=== PATIENT | female | born 2000 | race African-American/Black ===

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

== ENCOUNTER 2021-11-21 09:25 | Emergency (ER) | payer OTHER, SELFPAY ==
--- NOTE | ~2021-11-21 | XR_ITS ---
EXAMINATION: XR chest 2V DATE: 11/21/2021 09:56 INDICATION: Productive cough TECHNIQUE: PA and lateral views of the chest are obtained. COMPARISON: 07/24/2012 FINDINGS: The lungs are free of acute opacities. There is no pleural effusion or pneumothorax. The ca rdiomediastinal silhouette is normal. The visualized bones and soft tissues are unremarkable. IMPRESSION: 1. No acute cardiopulmonary abnormality. Reviewed, dictated and finalized at location A.
[2021-11-21 09:33] VITALS: BP 145/76; PULSE 79; RESP 16; TEMP 36.6; O2SAT 99
--- NOTE | 2021-11-21 09:39 | ED.URI ---
HPI - URI/Sore Throat General Chief Complaint: Upper Respiratory Infection Stated Complaint: cough/sob Time Seen by Provider: 11/21/21 09:39 Source: patient Mode of arrival: ambulatory Limitations: no limitations History of Present Illness HPI Narrative: 21-year-old female with history of seasonal allergy induced asthma presents with complaint of dry cough for approximately 2 weeks. States that she is out of her inhalers. Does not have a PCP, last inhaler prescribed from an urgent care. Reports that she is short of breath with exertion. Has a history of pneumonia. Denies fever chills. All systems reviewed and negative except as noted above. Related Data Home Medications Medication Instructions Recorded Confirmed levonorgestrel-ethinyl estrad 1 tablet PO DAILY 11/21/21 11/21/21 [Aviane] Allergies Allergy/AdvReac Type Severity Reaction Status Date / Time Penicillins Allergy Unknown Hives Verified 11/21/21 09:37 Review of Systems Review of Systems: CONSTITUTIONAL: Denies fever, chills, or sweats. EYES: Denies visual changes, redness, or discharge. ENT: Denies rhinorrhea, congestion, sore throat, or otalgia. CARDIOVASCULAR: Denies chest pain, palpitations, or edema. RESPIRATORY: Reports cough and dyspnea with exertion. GASTROINTESTINAL: Denies abdominal pain, nausea, vomiting, or diarrhea. GENITOURINARY: Denies dysuria or hematuria. SKIN: Denies rash or itching. MUSCULOSKELETAL: Denies back pain, joint pain, or myalgia. NEUROLOGIC: Denies headache, numbness, or weakness. PSYCHIATRIC: Denies anxiety or depression. All other systems reviewed are negative, except as documented in HPI. [facility] Past Medical History Medical History (Updated 11/21/21 @ 10:17 by Dacia Ibrahim NP) Pneumonia Comments At time of signature, agree with nursing past medical, surgical, social and family history. There is no relevant family history pertinent to the presenting complaint. Exam Narrative: GENERAL: This is a well-nourished, well-developed patient, in no apparent distress. HEAD: normocephalic, atraumatic. EYES: PERRL. Sclera clear/white. Vision is grossly intact. EARS: External ears normal, auditory canals clear and without drainage, TMs normal without perforation. Hearing grossly intact. NOSE: External nose normal with no obvious nasal discharge, nares without redness, no rhinorrhea. THROAT: Mucous membranes moist, posterior pharynx clear. NECK: Neck supple, non-tender without lymphadenopathy, masses or thyromegaly. CARDIOVASCULAR: Regular rate and rhythm without murmurs, gallops, or rubs. RESPIRATORY: Decreased lung sounds throughout all lung rivera. Mild expiratory wheezing to lower lung rivera. SKIN: warm, Dry, intact with no suspicious lesions or rash, good texture and turgor. NEURO: awake, alert, and oriented to person, place and time. There were no obvious focal neurologic abnormalities. EXTREMITIES: Normal range of motion to all extremities. Course Course Level of Care: Express Care Visit Vital Signs Vital signs: Vital Signs Temperature 36.6 C 11/21/21 09:33 Pulse Rate 79 11/21/21 09:33 Respiratory Rate 16 11/21/21 09:33 Blood Pressure 145/76 H 11/21/21 09:33 Pulse Oximetry 99 11/21/21 09:33 Temperature 36.6 C 11/21/21 09:33 Pulse Rate 79 11/21/21 09:33 Respiratory Rate 16 11/21/21 09:33 Blood Pressure 145/76 H 11/21/21 09:33 Pulse Oximetry 99 11/21/21 09:33 Reviewed MDM - URI/Sore Throat MDM Narrative Medical decision making narrative: Patient is aware of diagnosis, understands and agrees to treatment plan. Anticipatory guidance given. Patient agrees to follow-up as directed and is aware of reasons to seek care at the emergency department. Portions of this record may have been created with voice recognition software Differential Diagnosis Differential diagnosis: Likely upper respiratory infection, sinusitis, viral infection and other (Asthma) Discharge Plan Di
[2021-11-21 09:58] VITALS: PULSE 79; RESP 16; O2SAT 100
[2021-11-21] MEDS: ALBUTEROL SULFATE NEB 2.5 MG/3 ML INH INHALATION (09:58)
[2021-11-21 10:20] VITALS: PULSE 80; RESP 16; O2SAT 100
== END 2021-11-21 10:24 | disposition home or self-care (01) ==
PROVIDERS: Emergency Provider Nurse Practitioner Family
DX: J45.901 Unspecified asthma with (acute) exacerbation (principal)
CPT/HCPCS: 71046; 94640; 99213; G0463

== ENCOUNTER 2021-12-02 08:23 | Emergency (ER) | payer OTHER, SELFPAY ==
[2021-12-02 08:33] VITALS: BP 138/82; PULSE 87; RESP 16; TEMP 36.1; O2SAT 100
--- NOTE | 2021-12-02 08:37 | ED.GENADULT ---
HPI - General Adult General Chief complaint: Extremity Problem,Nontraumatic Stated complaint: Numb right toe Time Seen by Provider: 12/02/21 08:37 Source: patient Mode of arrival: ambulatory Limitations: no limitations History of Present Illness HPI narrative: 21-year-old female with no significant medical history presents to [facility] with concern for diabetes, high blood pressure due to family history. She has not been anywhere recently to have her blood pressure checked, so she is unaware if it has been elevated. She reports numbness sensation to right great toe for 3 to 4 hours. She spoke with her mother about it who said she may be wearing shoes that are too tight. Patient does not feel that her shoes are tight and when she takes her shoes off the toe is still numb. There is no change in temperature or color to her right great toe. She has not had an injury. Patient does not have a primary care physician for follow-up. All systems reviewed and negative except as noted above. Related Data Home Medications Medication Instructions Recorded Confirmed levonorgestrel-ethinyl estrad 1 tablet PO DAILY 11/21/21 11/21/21 [Aviane] Allergies Allergy/AdvReac Type Severity Reaction Status Date / Time Penicillins Allergy Unknown Hives Verified 11/21/21 09:37 Review of Systems Review of Systems: CONSTITUTIONAL: Denies fever, chills, or sweats. EYES: Denies visual changes, redness, or discharge. ENT: Denies rhinorrhea, congestion, sore throat, or otalgia. CARDIOVASCULAR: Denies chest pain, palpitations, or edema. RESPIRATORY: Denies cough or dyspnea. GASTROINTESTINAL: Denies abdominal pain, nausea, vomiting, or diarrhea. GENITOURINARY: Denies dysuria or hematuria. SKIN: Denies rash or itching. MUSCULOSKELETAL: Denies back pain, joint pain, or myalgia. Reports numbness sensation to right great toe. NEUROLOGIC: Denies headache, numbness, or weakness. PSYCHIATRIC: Denies anxiety or depression. All other systems reviewed are negative, except as documented in HPI. [facility] Past Medical History Medical History (Updated 12/02/21 @ 09:01 by Dacia Ibrahim NP) Pneumonia Comments At time of signature, agree with nursing past medical, surgical, social and family history. There is no relevant family history pertinent to the presenting complaint. Exam Narrative: GENERAL: This is a well-nourished, well-developed patient, in no apparent distress. HEAD: normocephalic, atraumatic. EYES: PERRL. Sclera clear/white. Vision is grossly intact. EARS: External ears normal NOSE: External nose normal NECK: Neck supple, non-tender without lymphadenopathy, masses or thyromegaly. CARDIOVASCULAR: Regular rate and rhythm without murmurs, gallops, or rubs. RESPIRATORY: Clear to auscultation. Breath sounds equal bilaterally. No wheezes, rales, or rhonchi. SKIN: warm, Dry, with no suspicious lesions or rash, good texture and turgor. NEURO: awake, alert, and oriented to person, place and time. There were no obvious focal neurologic abnormalities. EXTREMITIES: Normal range of motion to all extremities. Right great toe is is normal to have antibiotic compared to left foot. There are no circulation concerns. Course Course Level of Care: Express Care Visit Vital Signs Vital signs: Vital Signs Temperature 36.1 C L 12/02/21 08:33 Pulse Rate 87 12/02/21 08:33 Respiratory Rate 16 12/02/21 08:33 Blood Pressure 138/82 12/02/21 08:33 Pulse Oximetry 100 12/02/21 08:33 Temperature 36.1 C L 12/02/21 08:33 Pulse Rate 87 12/02/21 08:33 Respiratory Rate 16 12/02/21 08:33 Blood Pressure 138/82 12/02/21 08:33 Pulse Oximetry 100 12/02/21 08:33 Reviewed Medical Decision Making MDM Narrative Medical decision making narrative: Patient is aware of diagnosis, understands and agrees to treatment plan. Anticipatory guidance given. Patient agrees to follow-up as directed and is aware of reasons to seek care at the emerge
[2021-12-02 08:52] LABS: Glucose Point of Care 91 mg/dl (65-105)
== END 2021-12-02 09:10 | disposition home or self-care (01) ==
PROVIDERS: Emergency Provider Nurse Practitioner Family
DX: R20.0 Anesthesia of skin (principal)
CPT/HCPCS: 82948; 99212; G0463

== ENCOUNTER 2022-02-23 11:31 | Emergency (ER) | payer OTHER, SELFPAY ==
[2022-02-23 11:34] VITALS: BP 146/91; PULSE 78; RESP 16; TEMP 36.3; O2SAT 100
[2022-02-23 14:16] LABS: Basophils Percent Auto 0.2 % (0.2-1.2); Eosinophils Percent Auto 0.5 % (0-4.4); Hematocrit 46.4 % (37.0-47.0); Hemoglobin 14.8 g/dL (12.0-15.0); Immature Granulocyte Absolute 0.01 K/mm3 (0.00-0.031); Immature Granulocyte Percent A 0.2 % (0-0.5); Lymphocytes Absolute Auto 1.37 K/mm3 (0.9-3.2); Lymphocytes Percent Auto 33.6 % (18.3-44.2); Mean Corpuscular HGB Conc 31.9 g/dl (32-36); Mean Corpuscular Hemoglobin 28.6 pg (26-34); Mean Corpuscular Volume 89.7 fl (80-100); Monocytes Absolute Auto 0.4 K/mm3 (0.1-0.6); Monocytes Percent Auto 10.8 % (2.6-8.5); Neutrophils Absolute Auto 2.2 K/mm3 (1.3-6.7); Neutrophils Percent Auto 54.7 % (45.5-73.1); Platelet Count Result 256 k/mm3 (150-375); Red Blood Count 5.17 M/mm3 (4.2-5.4); Red Cell Distribution Width 13.3 % (11.5-14.5); White Blood Count 4.1 K/mm3 (4.5-10.0)
[2022-02-23 14:25] LABS: Appearance Urine Clear (Clear); Bilirubin Urine 3+ (Negative); Blood Urine Negative (Negative); Color Urine Yellow (Yellow); Glucose Urine UA Trace mg/dL (Negative); Ketones Urine 2+ mg/dL (Negative); Leukocyte Esterase Ur Negative LEU/UL (Negative); Nitrate Urine Negative (Negative); Protein Urine 3+ mg/dL (Negative); Specific Grav Ur 1.025 (1.001-1.035); Urobilinogen Urine >=8.0 mg/dL (<2.0)
[2022-02-23 14:28] LABS: Mucus Urine Heavy /lpf; Squamous Epithelial Cell Urine Many /hpf (Few)
[2022-02-23 14:29] LABS: Add Urine Microscopic? YES
[2022-02-23] MEDS: KETOROLAC 30 MG/ML VIAL (*BKC) IV PUSH (14:49)
[2022-02-23] MEDS: ONDANSETRON INJ 4 MG/2 ML VIAL IV PUSH (14:50)
[2022-02-23] MEDS: SODIUM CHLORIDE 0.9% IV 1,000 ML 999 ML IV CONT (14:53)
--- NOTE | 2022-02-23 14:56 | ED.NAVMDI ---
HPI - Nausea/Vomiting/Diarrhea General Chief complaint: Nausea/Vomiting/Diarrhea Stated complaint: covid +, n/v Time Seen by Provider: 02/23/22 13:45 Source: patient Mode of arrival: ambulatory Limitations: no limitations History of Present Illness HPI Narrative: Patient is a 21 y/o female who presents to the ED with c/o nausea and vomiting. Patient reports she was diagnosed with COVID 4 days ago. Over the last 2 days, she has had persistent nausea and vomiting. She states she has been unable to keep anything down for the last 24 hours. She reports having acid reflux burning from vomiting, but denies any abdominal pain, diarrhea, constipation, chest pain, difficulty breathing, hematemesis, rectal bleeding, urinary symptoms. Last had fever yesterday. Has been taking Tylenol/Ibuprofen at home. Related Data Home Medications Medication Instructions Recorded Confirmed levonorgestrel-ethinyl estradiol 1 tablet PO DAILY 11/21/21 11/21/21 0.1 mg-20 mcg tablet (Aviane) Allergies Allergy/AdvReac Type Severity Reaction Status Date / Time Penicillins Allergy Unknown Hives Verified 11/21/21 09:37 Review of Systems Review of Systems: CONSTITUTIONAL: Reports fevers. ENT: Reports rhinorrhea, congestion. CARDIOVASCULAR: Denies chest pain. RESPIRATORY: Reports cough. Denies dyspnea. GASTROINTESTINAL: Reports N/V. Denies abdominal pain, rectal bleeding, hematemesis, constipation, or diarrhea. GENITOURINARY: Denies dysuria or hematuria. MUSCULOSKELETAL: Reports myalgias. All systems reviewed & are unremarkable except as noted in HPI and below PMFSH Past Medical History Medical History (Updated 02/23/22 @ 16:43 by Jesica Antunez PA-C) COVID-19 Pneumonia Social History Social History (Updated 02/23/22 @ 15:09 by Jesica Antunez PA-C) Smoking status: Never smoker Exam Narrative: GENERAL: Well appearing, well-nourished, non-toxic, in no acute distress. HEAD: Normocephalic, atraumatic. THROAT: Pharynx clear, no exudate. MMs moist. NECK: Supple. No adenopathy, no masses. RESPIRATORY: Airway patent, respirations nonlabored. Clear to auscultation bilaterally, no rales, rhonchi, wheezing. CARDIOVASCULAR: Regular rate and rhythm without murmurs, rubs, or gallops. Peripheral pulses 2+ and equal bilaterally. ABDOMINAL: Soft, no significant tenderness to palpation. Nondistended, no hepatosplenomegaly. Normoactive BS. MUSCULOSKELETAL: Moves all extremities. Strength/ROM intact without gross deformities. SKIN: Warm, dry, normal color. No rashes. NEURO: A&O X3. Speech clear. Cranial nerves II-XII grossly intact. Steady gait. No ataxic movements. PSYCHIATRIC: Appropriate mood and affect. Normal interaction. Course Vital Signs Vital signs: Vital Signs Temperature 97.3 F L 02/23/22 11:34 Pulse Rate 78 02/23/22 11:34 Respiratory Rate 16 02/23/22 11:34 Blood Pressure 146/91 H 02/23/22 11:34 Pulse Oximetry 100 02/23/22 11:34 Oxygen Delivery Room Air 02/23/22 11:34 Temperature 97.3 F L 02/23/22 11:34 Pulse Rate 78 02/23/22 11:34 Respiratory Rate 16 02/23/22 11:34 Blood Pressure 146/91 H 02/23/22 11:34 Pulse Oximetry 100 02/23/22 11:34 Oxygen Delivery Room Air 02/23/22 11:34 MDM - Nausea/Vomiting/Diarrhea Medical Records Attestation: I reviewed the patient's medical records. Lab Data Attestation: I reviewed the patient's lab results. Result diagrams: 02/23/22 14:06 02/23/22 15:30 Labs: Lab Results 02/23/22 02/23/22 02/23/22 Range/Units 14:06 14:13 15:30 WBC 4.1 L (4.5-10.0) K/mm3 RBC 5.17 (4.2-5.4) M/mm3 Hgb 14.8 (12.0-15.0) g/dL Hct 46.4 (37.0-47.0) % MCV 89.7 (80-100) fl MCH 28.6 (26-34) pg MCHC 31.9 L (32-36) g/dl RDW 13.3 (11.5-14.5) % Plt Count 256 (150-375) k/mm3 MPV 11.0 H (7.4-10.4) fl Immature Gran % (Auto) 0.2 (0-0.5) % Neut % (Auto) 54.7 (45.5-73.1) % Lymph % (Auto) 33.6
[2022-02-23] MEDS: FAMOTIDINE 20 MG/2 ML VIAL IV PUSH (15:35)
[2022-02-23 15:55] LABS: Alanine Aminotransferase 60 U/L (6-35); Albumin Level 4.7 g/dL (3.5-5.1); Alkaline Phosphatase 67 U/L (38-126); Anion Gap 16 mmol/L (8-16); Aspartate Amino Transferase 74 U/L (14-36); Bilirubin,Total 1.5 mg/dL (0.2-1.3); Blood Urea Nitrogen 10 mg/dL (7-17); Calcium 9.1 mg/dL (8.4-10.2); Carbon Dioxide 23 mmol/L (22-30); Chloride 101 mmol/L (98-107); Estimated CRCL calculation 124 ml/min; Estimated Glomerular Filt Rate > 60; Glucose 85 mg/dL (65-110); Lipase 50 U/L (23-300); Potassium 4.3 mmol/L (3.4-5.0); Sodium 140 mmol/L (137-145)
== END 2022-02-23 17:00 | disposition home or self-care (01) ==
PROVIDERS: Physician Assistant; Emergency Provider Emergency Medicine
DX: U07.1 COVID-19 (principal); R11.2 Nausea with vomiting, unspecified; Z87.01 Personal history of pneumonia (recurrent)
CPT/HCPCS: 36415; 80053; 81001; 83690; 85025; 87086; 87088; 96361; 96365; 96375; 99284; J0131; J1885; J2405; J7030

== ENCOUNTER 2022-06-12 19:11 | Emergency (ER) | payer OTHER, SELFPAY ==
--- NOTE | 2022-06-12 19:24 | ED.URI ---
HPI - URI/Sore Throat General Chief Complaint: Upper Respiratory Infection Stated Complaint: cp/sob Time Seen by Provider: 06/12/22 19:53 Source: patient and RN notes reviewed Mode of arrival: ambulatory Limitations: no limitations History of Present Illness HPI Narrative: 21-year-old female with history of asthma presents with concern for cough, increased wheezing, pain to lungs with deep breathing that started on Friday. Reports some runny nose and stuffy nose. Reports she has been using her albuterol inhaler or nebulizer several times daily. She has never been hospitalized for asthma. MD elicited complaint: cough Related Data Home Medications Medication Instructions Recorded Confirmed levonorgestrel-ethinyl estradiol 1 tablet PO DAILY 11/21/21 11/21/21 0.1 mg-20 mcg tablet (Aviane) Allergies Allergy/AdvReac Type Severity Reaction Status Date / Time Penicillins Allergy Unknown Hives Verified 06/12/22 19:34 Review of Systems Review of Systems: CONSTITUTIONAL: Reports malaise, chills, sweats, low-grade fever. EYES: Denies visual changes, redness, or discharge. ENT: Reports rhinorrhea, congestion. Denies sinus pain, otalgia and sore throat. CARDIOVASCULAR: Denies chest pain, palpitations, or edema. RESPIRATORY: Reports cough, dyspnea, chest pain with breathing GASTROINTESTINAL: Denies abdominal pain, nausea, vomiting, diarrhea SKIN: Denies rash or itching. MUSCULOSKELETAL: Reports myalgia. NEUROLOGIC: Denies headache. All systems reviewed & are unremarkable except as noted in HPI and below PMFSH Past Medical History Medical History (Updated 06/12/22 @ 20:05 by Daniela Worthington NP) COVID-19 Pneumonia Social History Social History (Updated 02/23/22 @ 15:09 by Jesica Prieto PA-C) Smoking status: Never smoker Comments At time of signature, agree with nursing past medical, surgical, social and family history. There is no relevant family history pertinent to the presenting complaint Exam Narrative: GENERAL: Well-appearing, well-nourished, and in no acute distress. HEAD: Normocephalic EYES: PERRLA, conjunctivae clear ENT: Nares clear, turbinates edematous and erythematous, clear discharge. Mucous membranes moist. TM pearly mcarthur with dull light reflex bilaterally; no tragal tenderness. Oropharynx not erythematous without lesions. Tonsils not enlarged and without exudate, no drooling, no hoarseness, no trismus, uvula midline. NECK: Supple. No lymphadenopathy CHEST: Scattered expiratory wheeze, otherwise Clear to auscultation, breath sounds equal. No rhonchi, rales, or stridor. No respiratory distress, speaks in full sentences. HEART: Regular rate and rhythm. No murmur heard. SKIN: Warm, dry, no rash. NEURO: Alert and oriented x3. PSYCH: Normal mood and affect Course Course Emergency Course: Patient is aware of diagnosis, understands and agrees to treatment plan. Anticipatory guidance given. Patient agrees to follow-up as directed and is aware of reasons to seek care at the emergency department. Portions of this record may have been created with voice recognition software Level of Care: Express Care Visit Vital Signs Vital signs: Reviewed. MDM - URI/Sore Throat MDM Narrative Medical decision making narrative: Differential diagnosis considered: May virus, strep pharyngitis, allergic rhinitis, upper respiratory tract infection, sinusitis, rhinosinusitis, nasopharyngitis. viral pharyngitis, otitis media, otitis externa, pneumonia, bronchitis, viral cough syndrome, viral syndrome, and influenza. Exam findings show no acute concerns or changes; patient is non-toxic appearing and is in no distress. Patient is appropriate for outpatient treatment and follow-up. Lab Data Attestation: I reviewed the patient's lab results. Critical Care Time Critical Care Time Critical Care Time: No Discharge Plan Discharge Clinical Impression: Upper respiratory infection with cough and congestion Pa
[2022-06-12 19:39] VITALS: BP 146/95; PULSE 111; RESP 20; TEMP 36.8; O2SAT 100
== END 2022-06-12 20:10 | disposition home or self-care (01) ==
PROVIDERS: Emergency Provider Nurse Practitioner
DX: J06.9 Acute upper respiratory infection, unspecified (principal); Z86.16 Personal history of COVID-19
CPT/HCPCS: 87420; 87804; 99213; G0463

== ENCOUNTER 2023-05-13 12:30 | Outpatient (CLI) | payer OTHER, MEDICAID, SELFPAY ==
--- NOTE | ~2023-05-13 | US_ITS ---
EXAMINATION: US OB follow up DATE: 05/13/2023 14:14 INDICATION: Amenorrhea. . TECHNIQUE: Real-time ultrasound of the pelvis was performed. COMPARISON: None. FINDINGS: There is a single living fetus in variable presentation. The placenta is anterior, 10 mm from the in ternal cervical os. heart rate is 141 beats per minute (bpm). The amniotic fluid volume is subj ectively normal. The following biometric data were obtained: Biparietal diameter (BPD): 3.5 cm; head circumference (HC): 12.8 cm; abdominal circumference (AC): 11 .1 cm; femur length (FL): 2.2 cm. These measurements are concordant. Estimated weight is 165 g +/- 25 g, which correlates with the 60th percentile when 10/25/23 is us ed as estimated date of delivery. As single measurements, these parameters are each equal to the following estimated gestational ages: BPD: 16 weeks 5 days. HC: 16 weeks 4 days. AC: 16 weeks 6 days. FL: 16 weeks 3 days. estimated gestational age based solely on measurements from this exam is 16 weeks 4 days +/- 1 weeks 1 days. IMPRESSION: 1. Single living fetus in variable presentation. 2. Estimated weight is 165 g +/- 25 g, which correlates with the 60th percentile when 10/25/23 i s used as estimated date of delivery. 3. Low lying placenta. Reviewed, dictated and finalized at location E. IMPRESSION: 1. Single living fetus in variable presentation. 2. Estimated weight is 165 g +/- 25 g, which correlates with the 60th pe rcentile when 10/25/23 is used as estimated date of delivery. 3. Low lying placenta.
== END 2023-05-13 12:31 | disposition home or self-care (01) ==
PROVIDERS: Visit Provider Registered Nurse
DX: Z32.01 Encounter for pregnancy test, result positive (principal); N91.2 Amenorrhea, unspecified; O44.40 Low lying placenta NOS or without hemorrhage, unspecified trimester; Z3A.00 Weeks of gestation of pregnancy not specified
CPT/HCPCS: 76816

== ENCOUNTER 2023-07-10 08:34 | Observation (INO) | payer OTHER, SELFPAY ==
--- NOTE | ~2023-07-10 | US_ITS ---
EXAMINATION: US OB limited DATE: 07/10/2023 09:39 INDICATION: Vaginal bleeding during second trimester TECHNIQUE: Real-time ultrasound of the pelvis was performed. The interpreting radiologist was not pre sent for the study. COMPARISON: None. FINDINGS: There is a single living fetus in breech presentation. The placenta is anterior and 5.6 cm from the internal cervical os. cardiac activity and movement are noted. heart rate is 133 beats per minute (bpm). The amniotic fluid index is subjectively normal. IMPRESSION: 1. Single living fetus in breech presentation. 2. Anterior placenta 5.6 cm from the internal cervical os. Reviewed, dictated and finalized at location L. [employer]
[2023-07-10 08:53] VITALS: BP 130/68; PULSE 91
[2023-07-10 08:59] VITALS: BMI 42.3
--- NOTE | 2023-07-10 08:59 | OBADM ---
This patient, Elidia Messina, admitted to the OB room OB Post 116 for observation. Patient/family oriented to hospital policies and general routines including ID bracelet, bed and alarms, visiting hours, pain management, procedures, bathroom and other care routines, personal items, smoking policy, room service/diet, and visiting hours. Patient/Family are encouraged to report perceived risks to care and to ask questions if they do not understand what they are told or what they should do.
[2023-07-10 09:02] VITALS: BP 108/60; PULSE 93
[2023-07-10 09:16] VITALS: BP 118/60; PULSE 94
--- NOTE | 2023-07-10 09:59 | PC.NURSE ---
0910--Report to Dr. Michel re: pt's reports of vaginal spotting, v.s., fhr tracing, and assessment data. Orders received for u/a and u/s.
[2023-07-10 10:04] LABS: Appearance Urine Cloudy (Clear); Bacteria Urine None Seen /hpf; Bilirubin Urine Negative (Negative); Blood Urine Negative (Negative); Color Urine Yellow (Yellow); Glucose Urine UA Negative (Negative); Ketones Urine Negative (Negative); Leukocyte Esterase Ur Trace LEU/UL (Negative); Nitrate Urine Negative (Negative); Non Pathogenic Casts 0-2; Protein Urine Negative (Negative); RBC Urine 0-2 /hpf (0-2); Specific Grav Ur 1.013 (1.001-1.035); Squamous Epithelial Cell Urine Occasional /hpf (Few); Urobilinogen Urine 0.2 mg/dL (<2.0); WBC Urine 0-5 /hpf; pH Urine 8.5 (5.0-9.0)
[2023-07-10 10:05] LABS: Add Urine Microscopic? YES
--- NOTE | 2023-07-10 10:54 | PC.NURSE ---
1020--report to Dr. Michel re: u/s report and lab results. Orders for gentle cervical exam and if closed to DC home on pelvic rest with PTL precautions.
--- NOTE | 2023-07-28 19:52 | PM.OBTRLD ---
OB - Triage/Final Diagnosis Visit Information Comments/Additional reasons for admission: I have assessed the risk for this patient, Elidia Messina, and determined that she would benefit from observation care. Evaluation Laboratory results: Laboratory Tests 07/10/23 09:17 Urine Color Yellow Urine Appearance Cloudy H Urine pH 8.5 Ur Specific [place] 1.013 Urine Protein Negative Urine Glucose (UA) Negative Urine Ketones Negative Ur Blood (Man) Negative Urine Nitrate Negative Urine Bilirubin Negative Urine Urobilinogen 0.2 Leukocyte Esterase Rfl Trace H Urine RBC 0-2 Urine WBC 0-5 Ur Squamous Epith Cells Occasional Urine Bacteria None seen Urine Casts 0-2 Final Diagnosis (1) Second trimester bleeding: Code(s): O46.92 - Antepartum hemorrhage, unspecified, second trimester Status: Acute
== END 2023-07-10 10:42 | disposition home or self-care (01) ==
PROVIDERS: Admitting Provider Obstetrics & Gynecology; Visit Provider Obstetrics & Gynecology
DX: O46.92 Antepartum hemorrhage, unspecified, second trimester (principal); Z3A.24 24 weeks gestation of pregnancy
CPT/HCPCS: 76815; 81001; G0378; G0379

== ENCOUNTER 2023-08-28 17:12 | Observation (INO) | payer OTHER, SELFPAY ==
[2023-08-28 17:35] VITALS: BP 132/75; PULSE 97
--- NOTE | 2023-08-28 17:41 | OBADM ---
This patient, Elidia Messina, admitted to the OB room [facility] for observation. Pt states she had intercourse last night, and she started to have spotting this afternoon around 1530. Pt denies contractions or leaking fluid. observed light brown discharge on panty liner. Patient/family oriented to hospital policies and general routines including ID bracelet, bed and alarms, visiting hours, pain management, procedures, bathroom and other care routines, personal items, smoking policy, room service/diet, and visiting hours. Patient/Family are encouraged to report perceived risks to care and to ask questions if they do not understand what they are told or what they should do.
[2023-08-28 17:46] VITALS: BP 126/66; PULSE 90
[2023-08-28 17:59] VITALS: TEMP 36.3
[2023-08-28 18:01] VITALS: BP 127/62; PULSE 89
[2023-08-28 18:16] VITALS: BP 135/78; PULSE 81
--- NOTE | 2023-09-17 10:43 | PM.OBTRLD ---
OB - Triage/Final Diagnosis Visit Information Comments/Additional reasons for admission: I have assessed the risk for this patient, Elidia Messina, and determined that she would benefit from observation care. Final Diagnosis (1) Spotting complicating , third trimester: Code(s): O26.853 - Spotting complicating , third trimester Status: Acute
== END 2023-08-28 18:42 | disposition home or self-care (01) ==
PROVIDERS: Admitting Provider Obstetrics & Gynecology; Visit Provider Obstetrics & Gynecology
DX: O26.853 Spotting complicating pregnancy, third trimester (principal); Z3A.31 31 weeks gestation of pregnancy
CPT/HCPCS: G0378; G0379

== ENCOUNTER 2023-10-24 16:09 | Outpatient (RCR) | payer OTHER, MEDICAID, SELFPAY ==
[2023-10-10 16:31] VITALS: PULSE 81
[2023-10-17 17:14] VITALS: BP 138/76; PULSE 93
--- NOTE | ~2023-10-24 | US_ITS ---
EXAMINATION: US OB BPP wo non-stress DATE: 10/17/2023 18:41 INDICATION: Elevated BMI . TECHNIQUE: Real-time ultrasound of the pelvis was performed. COMPARISON: 10/10/2023 FINDINGS: There is a single living fetus in vertex presentation, longitudinal lie. The placenta is anterior, w ell distant from the cervix. heart rate is 127 bpm. The deepest vertical amniotic fluid pocket measures 2.8 cm. Biophysical profile performed by the technologist: breathing (30 sec sustained breathing in 30 minutes): 2 out of 2. movement (3 gross body movements in 30 minutes: 2 out of 2. tone (one episode of jdyknnd-vvdlaawnu-eixzrrt limb movement): 2 out of 2. Amniotic fluid pocket (2 cm): 2 out of 2. Total score: 8 out of 8. IMPRESSION: Single living fetus in vertex presentation. Biophysical profile 8 out of 8. . Reviewed, dictated and finalized at location K.
--- NOTE | ~2023-10-24 | US_ITS ---
EXAMINATION: US OB BPP wo non-stress DATE: 10/24/2023 18:47 INDICATION: Elevated BMI . TECHNIQUE: Real-time ultrasound of the pelvis was performed. COMPARISON: 10/17/2023. FINDINGS: There is a single living fetus in vertex presentation, longitudinal lie. The placenta is anterior, w ell distant from the cervix. heart rate is 144 bpm. Deepest vertical pocket 5.8 cm. Biophysical profile performed by the technologist: breathing (30 sec sustained breathing in 30 minutes): 2 out of 2. movement (3 gross body movements in 30 minutes: 2 out of 2. tone (one episode of rhxfzfa-icwkltqnq-fmengfy limb movement): 2 out of 2. Amniotic fluid pocket (2 cm): 2 out of 2. Total score: 8 out of 8. IMPRESSION: Single living fetus in vertex presentation. Biophysical profile 8 out of 8. Reviewed, dictated and finalized at location K.
--- NOTE | ~2023-10-24 | US_ITS ---
EXAMINATION: US OB BPP wo non-stress DATE: 10/10/2023 16:58 INDICATION: Elevated BMI during third trimester TECHNIQUE: Real-time pelvic ultrasound was performed. The interpreting radiologist was not present fo r the study. COMPARISON: 07/10/2023 FINDINGS: There is a single living fetus in vertex presentation. The placenta is anterior. heart rate is 129 beats per minute (bpm). Biophysical profile performed by the technologist: breathing (30 sec sustained breathing in 30 minutes): 2 out of 2 movement (3 gross body movements in 30 minutes): 2 out of 2 tone (one episode of gqzkkrz-xqnvcajhi-gcrnznd limb movement): 2 out of 2 Amniotic fluid pocket (2 cm): 2 out of 2 Total score: 8 out of 8 IMPRESSION: 1. Single living fetus in vertex presentation. 2. Biophysical profile 8 out of 8. Reviewed, dictated and finalized at location F.
[2023-10-24 17:26] LABS: Basophils Percent Auto 0.3 % (0.2-1.2); Eosinophils Absolute Auto 0.3 K/mm3 (0-0.3); Eosinophils Percent Auto 2.7 % (0-4.4); Hematocrit 36.5 % (37.0-47.0); Hemoglobin 11.4 g/dL (12.0-15.0); Immature Granulocyte Absolute 0.06 K/mm3 (0.00-0.031); Immature Granulocyte Percent A 0.6 % (0-0.5); Lymphocytes Absolute Auto 1.41 K/mm3 (0.9-3.2); Lymphocytes Percent Auto 14.9 % (18.3-44.2); Mean Corpuscular HGB Conc 31.2 g/dl (32-36); Mean Corpuscular Hemoglobin 27.7 pg (26-34); Mean Corpuscular Volume 88.6 fl (80-100); Mean Platelet Volume 10.9 fl (7.4-10.4); Monocytes Absolute Auto 0.9 K/mm3 (0.1-0.6); Monocytes Percent Auto 9.5 % (2.6-8.5); Neutrophils Absolute Auto 6.8 K/mm3 (1.3-6.7); Platelet Count Result 264 k/mm3 (150-375); Red Blood Count 4.12 M/mm3 (4.2-5.4); Red Cell Distribution Width 14.9 % (11.5-14.5); White Blood Count 9.5 K/mm3 (4.5-10.0)
[2023-10-24 17:39] LABS: Alanine Aminotransferase 28 U/L (6-35); Albumin Level 3.8 g/dL (3.5-5.1); Alkaline Phosphatase 246 U/L (38-126); Anion Gap 8 mmol/L (4-12); Aspartate Amino Transferase 31 U/L (14-36); Bilirubin,Total 0.3 mg/dL (0.2-1.3); Blood Urea Nitrogen 9 mg/dL (7-17); Calcium 10.1 mg/dL (8.4-10.2); Carbon Dioxide 22 mmol/L (22-30); Chloride 105 mmol/L (98-107); Estimated Glomerular Filt Rate > 60; Glucose 92 mg/dL (65-110); Potassium 4.1 mmol/L (3.4-5.0); Sodium 135 mmol/L (137-145); Uric Acid 4.3 mg/dL (2.5-7.5)
[2023-10-24 17:50] VITALS: BP 155/96; PULSE 89
[2023-10-24 17:52] LABS: Platelet Estimate Adequate (Adequate)
[2023-10-24 17:53] LABS: Anisocytosis 1+; Hypochromasia 1+; Schistocytes None Seen
[2023-10-24 18:02] LABS: Appearance Urine Clear (Clear); Bilirubin Urine Negative (Negative); Blood Urine Negative (Negative); Color Urine Yellow (Yellow); Glucose Urine UA Negative (Negative); Ketones Urine Negative (Negative); Leukocyte Esterase Ur Negative LEU/UL (Negative); Nitrate Urine Negative (Negative); Protein Urine Negative (Negative); Urobilinogen Urine 0.2 mg/dL (<2.0)
[2023-10-24 18:06] LABS: Add Urine Microscopic? NO; Creatinine Urine 12.7 mg/dL; Specific Grav Ur 1.004 (1.001-1.035); Total Protein Urine Random 13 mg/dL; Ur Ttl Prot Creatinine Ratio 1.02 mg/mg (0-0.20)
== END 2024-01-08 23:59 | disposition home or self-care (01) ==
LOC: ANHOBOP 16:09
PROVIDERS: Visit Provider Obstetrics & Gynecology
DX: O99.891 Other specified diseases and conditions complicating pregnancy (principal); O26.03 Excessive weight gain in pregnancy, third trimester; Z3A.37 37 weeks gestation of pregnancy; Z3A.38 38 weeks gestation of pregnancy; Z3A.39 39 weeks gestation of pregnancy
CPT/HCPCS: 36415; 59025; 76819; 80053; 81003; 82570; 84156; 84550; 85025

== ENCOUNTER 2023-10-24 19:00 | Inpatient (IN) | payer OTHER, MEDICAID, SELFPAY ==
[2023-10-24] VITALS (9 sets, daily range): BP systolic 137–153; BP diastolic 58–83; PULSE 90–99; BMI 49.4
[2023-10-24] MEDS: DINOPROSTONE 10 MG VAG INSERT VAGINAL (21:45)
[2023-10-24] MEDS: LACTATED RINGERS 1,000 ML 125 ML IV CONT (21:45)
[2023-10-24] MEDS: ceFAZolin 2 GM/D5W 50 ML 2 GM/50 ML BAG IVPB (21:45)
--- NOTE | 2023-10-24 21:51 | LDADM ---
This patient, Elidia Messina, was admitted to Labor/Delivery/Recovery 107 on 10/24/23 at 19:00. Plans for labor, pain management and were discussed with patient. Patient/family oriented to hospital policies and general routines including ID bracelet, bed and alarms, visiting hours, pain management, procedures, bathroom and other care routines, personal items, smoking policy, room service/diet and guest tray routines, security routines, and visiting hours. Patient/Family are encouraged to report perceived risks to care and to ask questions if they do not understand what they are told or what they should do. See OBIX for further documentation.
[2023-10-25] VITALS (27 sets, daily range): BP systolic 111–154; BP diastolic 37–116; PULSE 85–112; TEMP 36.3–37.3
[2023-10-25] MEDS: ceFAZolin 1 GM/NS 50 ML 1 GM/50 ML BAG IVPB ×3 (05:51→22:06)
[2023-10-25] MEDS: miSOPROStol 25 MCG TABLET 50 MCG PO (10:59)
[2023-10-25] MEDS: OXYTOCIN 30 UNITS/NS 500 ML 30 UNITS/500 ML BAG 6 UNITS IV CONT (15:20)
[2023-10-25] MEDS: LACTATED RINGERS 1,000 ML 125 ML IV CONT (20:48)
[2023-10-26] VITALS (121 sets, daily range): BP systolic 96–158; BP diastolic 49–97; PULSE 76–200; RESP 16–18; TEMP 36.6–37.6; O2SAT 95–100
[2023-10-26] MEDS: fentaNYL CITRATE INJ (*CRX) 100 MCG/2 ML VIAL IV PUSH ×3 (00:29→05:53)
[2023-10-26] MEDS: CALCIUM CARBONATE (TUMS) 500 MG (200 MG ELEMENTAL) PO (01:40)
[2023-10-26] MEDS: ceFAZolin 1 GM/NS 50 ML 1 GM/50 ML BAG IVPB (02:15)
--- NOTE | 2023-10-26 04:50 | WPDANESEPP ---
Anes - Eval Pre Procedure Procedure: Labor epidural Date/Time: 10/26/23 04:50 Surgeon: odalys Preop Diagnosis: pain during labor Pre Op Diagnosis: IOL Patient Data Age: 23 Gender: F Height: 1.68 m Weight: 139 kg Last Vital Signs Temp 36.8 C 10/26/23 01:00 Pulse 91 10/26/23 02:31 Resp 16 10/26/23 01:00 BP 129/66 10/26/23 02:31 O2 Del Method Room Air 10/25/23 08:19 Allergies Allergy/AdvReac Type Severity Reaction Status Date / Time Penicillins AdvReac Intermediate Hives Verified 10/24/23 09:28 Home Medications Medication Instructions Recorded Confirmed Type albuterol sulfate 200 mcg capsule 200 mcg inhalation DAILY PRN 04/23/23 09/30/23 History with inhalation device Wheezing vitamins-iron 29 mg-folic 1 tablet PO DAILY 05/27/23 09/30/23 History acid 1 mg-docusate 50 mg tablet metoclopramide HCl 5 mg tablet 5 mg PO Q6-8H PRN nausea and 06/23/23 09/30/23 Rx (Reglan) vomiting #30 tabs aspirin 81 mg capsule 81 mg PO DAILY 07/10/23 09/30/23 History Patient hx anesthesia problems: none Family hx anesthesia problems: none Results Review: All pre-operative results and documents have been reviewed as part of the pre-operative evaluation. [facility] Past Medical History Medical History Amenorrhea Benign tumor of breast BMI 40.0-44.9, adult COVID-19 Pneumonia Family History Family History Father Hypertension Mother No problems noted. Sibling No problems noted. Social History Social History Smoking status: Former smoker Tobacco type: e-cigarettes/vaping Second hand tobacco smoke exposure: No Alcohol intake: former Substance use: never Substance use type: marijuana Do You Feel Safe in your Home?: No Lack of Transportation: No Lack of Food: Never True Current Housing: I Have Housing Concerned About Future Housing: No Difficulty Paying Gas/Electric Bills: No Difficulty Paying for Meds: No Currently Unemployed: No Education: High School Diploma/GED Difficulty w/ Childcare or Family Care: No Living arrangements: with family Occupation/Education: student Additional occupation/education comments: 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 Gender identity (if verbalized by the patient): Female Spiritual care concerns: No Exam Day of Procedure 10/26/23 04:50
--- NOTE | 2023-10-26 09:38 | PM.IMHP ---
H&P: HPI History of Present Illness Date/Time: 10/26/23 09:38 Chief Complaint: Gestational hypertension Narrative: 23 y/o G1 at 40 weeks admitted for gestational hypertension. Sustained increased blood pressure at her last office visit. No severe symptoms. She was recommended for [facility] for gestational hypertension. Labs normal except elevated P/C ratio. She was offered induction. She was informed of risk benefits of induction vs continuing and agreed with induction of labor. Review of Systems Review of Systems: All systems reviewed & are unremarkable except as noted in HPI and below Constitutional: Constitutional: Reports no additional constitutional complaints and Denies headache(s) Eyes: Eyes: Denies spots in vision ENT: Reports system reviewed and no additional complaints, except as documented and Denies headache(s) Cardiovascular: Cardiovascular: Denies chest pain and Denies dyspnea Respiratory: Respiratory: Denies dyspnea Gastrointestinal: Gastrointestinal: Reports no additional gastrointestinal complaints Genitourinary: Genitourinary: Reports amenorrhea Musculoskeletal: Musculoskeletal: Reports no additional musculoskeletal complaints Integumentary/Breasts: Skin/Breast: Denies breast mass and Denies rash Neurologic: Denies headache(s) Psychiatric: Psychiatric: Reports no additional psychiatric complaints [facility] Past Medical History Medical History Amenorrhea Benign tumor of breast BMI 40.0-44.9, adult COVID-19 Pneumonia Family History Family History Father Hypertension Mother No problems noted. Sibling No problems noted. Social History Social History Smoking status: Former smoker Tobacco type: e-cigarettes/vaping Second hand tobacco smoke exposure: No Alcohol intake: former Substance use: never Substance use type: marijuana Do You Feel Safe in your Home?: No Lack of Transportation: No Lack of Food: Never True Current Housing: I Have Housing Concerned About Future Housing: No Difficulty Paying Gas/Electric Bills: No Difficulty Paying for Meds: No Currently Unemployed: No Education: High School Diploma/GED Difficulty w/ Childcare or Family Care: No Living arrangements: with family Occupation/Education: student Additional occupation/education comments: 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 Gender identity (if verbalized by the patient): Female Spiritual care concerns: No Meds Home Medications and Allergies Home Medications Medication Instructions Recorded Confirmed Type albuterol sulfate 200 mcg capsule 200 mcg inhalation DAILY PRN 04/23/23 09/30/23 History with inhalation device Wheezing vitamins-iron 29 mg-folic 1 tablet PO DAILY 05/27/23 09/30/23 History acid 1 mg-docusate 50 mg tablet metoclopramide HCl 5 mg tablet 5 mg PO Q6-8H PRN nausea and 06/23/23 09/30/23 Rx (Reglan) vomiting #30 tabs aspirin 81 mg capsule 81 mg PO DAILY 07/10/23 09/30/23 History Allergies Allergy/AdvReac Type Severity Reaction Status Date / Time Penicillins AdvReac Intermediate Hives Verified 10/24/23 09:28 Vital Signs Vital Signs - 24 hr 10/25/23 09:45 10/25/23 11:02 10/25/23 11:31 Temperature Pulse Rate 99 100 95 Respiratory Rate Blood Pressure 144/86 H 143/84 H 139/60 Pulse Oximetry 10/25/23 12:01 10/25/23 12:31 10/25/23 10:00 Temperature 99.1 F Pulse Rate 112 H 90 Respiratory Rate Blood Pressure 111/37 L 135/86 Pulse Oximetry 10/25/23 15:22 10/25/23 15:31 10/25/23 16:00 Temperature 98.1 F Pulse Rate 89 88 91 Respiratory Rate Blood Pressure 154/88 H 143/82 H 147/81 H Pulse Oximetry 10/25/23 16:30 10/25/23 17:01 10/25/23 18:04 Temperature Pulse Rate 97 98 89 Respiratory Rate Blood Pressur
[2023-10-26] MEDS: LACTATED RINGERS 1,000 ML 125 ML IV CONT (09:45)
[2023-10-26] MEDS: OXYTOCIN 30 UNITS/NS 500 ML 30 UNITS/500 ML BAG 125 UNITS IV CONT (10:40)
[2023-10-26] MEDS: BENZOCAINE 20% AER SPR (*SP) 56 GM CAN 1 SPRAY TOPICAL (14:09)
[2023-10-26] MEDS: WITCH HAZEL 40 PADS 1 PAD TOPICAL (14:09)
[2023-10-26] MEDS: IBUPROFEN 600 MG TABLET PO ×2 (14:39→20:40)
[2023-10-26] MEDS: ACETAMINOPHEN 325 MG TABLET 650 MG PO ×2 (16:15→23:02)
--- NOTE | 2023-10-26 20:15 | PM.OBPRVD ---
OB - Vaginal Delivery Note Procedure Delivery date: 10/26/23 Events: Gestational Hypertension Induction method: Per Pitocin Protocol, Per Cervidil Protocol and Other (cytotec) Delivery augmentation: Rupture of Membranes Delivery monitor: External FHT and Internal Uterine Route of delivery: Episiotomy description: None Laceration Description: Periurethral and Vaginal Delivery repair: vicryl (3.0 vicyl) Specimen: No Quantitative Blood Loss (ml): 300 Anesthesia type: Epidural Disposition: Floor Complications: No immediate complications Narrative: She was admitted for [facility] for gestational hypertension. She had cervidil then cytotec 50mg buccal. Pitocin started. She had SROM. She continued to progress in labor and dilated to complete. [place] Baby Date of : 10/26/23 Time of : 10:19 Weeks of gestation at delivery: 40 gender: Female Weight (pounds): 8 Weight (ounces): 0 presentation: vertex position: Left Occiput Anterior Placenta delivery description: Spontaneous Cord Vessel Description: 3 Vessels, Nuchal Cord, Reduced (surgical) and Delayed Cord Clamping score one minute: 9 score five minutes: 9 AMG Delivery Billing Delivery Delivery: Delivery Charge
[2023-10-26] MEDS: LANOLIN (LANSINOH) 7.5 GM CREAM 1 APPLIC TOPICAL (23:02)
[2023-10-27] MEDS: IBUPROFEN 600 MG TABLET PO ×3 (03:40→20:48)
[2023-10-27 03:45] VITALS: BP 129/76; PULSE 84; RESP 16; TEMP 37.6
[2023-10-27 04:36] LABS: Hematocrit 30.8 % (37.0-47.0); Hemoglobin 9.6 g/dL (12.0-15.0)
[2023-10-27 07:15] VITALS: BP 131/87; PULSE 89; RESP 16; TEMP 37.6; O2SAT 99
--- NOTE | 2023-10-27 07:28 | WPDANLDPN2 ---
Anes-Prog Note L&D Date/Time: 10/27/23 07:28 Comfortable throughout: labor and delivery Neuraxial method: epidural Epidural/Spinal procedure site: clean & non-tender Neuro status: Neuro function grossly intact. Cardiovascular status: normal Respiratory status: normal Airway patency: baseline Mental status: baseline Post-Op hydration status: normal Vital Signs: Last Vital Signs Temp 99.7 F H 10/27/23 03:45 Pulse 84 10/27/23 03:45 Resp 16 10/27/23 03:45 BP 129/76 10/27/23 03:45 Pulse Ox 98 10/26/23 16:21 O2 Del Method Room Air 10/26/23 14:30 Pain score (VAS): 0/10 I/O: Intake & Output 10/26/23 10/26/23 10/27/23 15:59 23:59 07:59 Intake Total 2000 500 500 Output Total 300 900 Balance 1700 -400 500 Post-procedural complaints: none Patient feedback: Patient satisfied with anesthetic care.
[2023-10-27] MEDS: DOCUSATE SODIUM 100 MG CAPSULE PO ×2 (08:33→18:39)
[2023-10-27] MEDS: ACETAMINOPHEN 325 MG TABLET 650 MG PO ×2 (08:33→18:37)
[2023-10-27] MEDS: MULTIVIT/MIN/PREN/FOL AC/IRON TABLET 1 TAB PO (08:33)
[2023-10-27] MEDS: POLYSACCHARIDE IRON COMPLEX 150 MG CAPSULE PO ×2 (08:33→18:37)
--- NOTE | 2023-10-27 10:07 | PM.OBPNVD ---
OB - PN: Subj Subjective Date/time seen: 10/27/23 0830 Interval history: PPD 1 She is doing well. Reports good pain control Bleeding is moderate, no clots. Ambulating without difficulty Is formula feeding and pumping. No breast concerns. Denies headache, vision changes. Patient comments: no complaints, pain well controlled, tolerating diet and flatus present [place] baby status: doing well feeding status: breast and bottle feeding OB - PN: Obj Data Labs 10/27/23 03:33 Labs: Laboratory Results - last 24 hr 10/27/23 03:33 Hgb 9.6 L Hct 30.8 L OB - PN A/P Assessment and Plan (1) Spontaneous vaginal delivery: Code(s): O80 - Encounter for full-term uncomplicated delivery Status: Acute Assessment and Plan: PPD1 Doing well. (2) Gestational hypertension: Code(s): O13.9 - Gestational [-induced] hypertension without significant proteinuria, unspecified trimester Status: Acute Assessment and Plan: Two elevated BPs through the night. Denies headache, vision changes. Discussed with Dr. Michel. Will observe. (3) Anemia: Code(s): D64.9 - Anemia, unspecified Status: Acute Assessment and Plan: Continue iron as ordered. Discussed iron rich foods. Plan day: 1 Plan: routine care Time Spent With Patient Time: Total time spent is greater than 50% in coordination of care (as documented) at patient's floor/unit and/or counseling patient: Review of Systems Constitutional: Constitutional: Reports no additional constitutional complaints, Denies chills and Denies fever(s) Respiratory: Respiratory: Reports no additional respiratory complaints Gastrointestinal: Gastrointestinal: Reports no additional gastrointestinal complaints and Denies abdominal pain Genitourinary: Genitourinary: Reports no additional female genitourinary complaints Musculoskeletal: Musculoskeletal: Reports no additional musculoskeletal complaints Neurologic: Reports system reviewed and no additional complaints, except as documented Exam Const: General: cooperative, comfortable and no acute distress Orientation/consciousness: patient oriented x3 Resp: Effort & Inspection: normal respiratory effort and able to speak in complete sentences Auscultation: clear to auscultation bilaterally Cardio: Rate: regular rate Rhythm: regular rhythm GI: Inspection: normal to inspection Other: Fundus palpated below U. Non tender : External Female Exam: normal external appearance Extrem: General: normal to inspection, full ROM and no calf tenderness Right upper extremity: no edema Left upper extremity: no edema
--- NOTE | 2023-10-27 11:01 | PC.NURSE ---
1015 Introductions were made, then consulted with patient to assess needs related to . Mother led the conversation with her?plans to feed?her and the?experience so far. Encouraged understanding of the benefits of skin to skin (demonstrating unwrapping infant and placing upright on her chest), stimulating with massage touch, changing positions to encourage wakefulness, how to watch for early feeding cues, responsive feeding, feeding on demand (aiming for 8-12 times in 24 hours, about every 2-3 hours), milk production, building/maintaining a milk supply, duration of feeding, signs of adequate intake/output and how to record on the feeding sheet. Mother works well with her with encouragement and education. Reviewed positioning and ear, shoulder, hip alignment, supporting the breast to facilitate a deep latch, asymmetrical latch (off-center), leading with the chin with a big, open, wide gape and body close to mother. Reviewed comfort measures of healing with a warm, wet washcloth to rinse breast, then leave open to air-dry, good handwashing when or touching the breast/nipples to prevent infection. Mother voiced understanding of skin to skin, stimulating with massage touch, responsive feedings, hand expressed colostrum, talking to to encourage if it has been 2 -2.5 hours since the start of the last , to call if does not latch, or if there is discomfort with . Resources used for education were facilitated with the visual educational handouts/mother baby guide. Inpatient resources provided with business card, feeding sheet, name written on the communication board, and the mom/baby guide. Parents voiced understanding of information, demonstrated learning and will call if there is a request for assistance. Reported to the Primary RN.
[2023-10-27 12:10] VITALS: BP 136/75; PULSE 88; RESP 16; TEMP 36.9; O2SAT 100
--- NOTE | 2023-10-27 14:11 | PC.NURSE ---
1300 Mother works well with her infant with encouragement and education. Reviewed positioning and ear, shoulder, hip alignment, supporting the breast to facilitate a deep latch, asymmetrical latch (off-center), leading with the chin with a big, open, wide gape and body close to mother. latched optimally to the left breast in cross cradle position. Education given to the mother of how to visualize the suckling (with good rocking jaw motion), swallows (dropping of the lower jaw) and how to listen for drinking at the breast (the ka sound). was able to maintain latch without pain to mother protecting the nipple with optimal positioning and latching. Reviewed comfort measures of healing with a warm, wet washcloth to rinse breast, then leave open to air-dry, good handwashing when or touching the breast/nipples to prevent infection. Parents voiced understanding of information, demonstrated learning and will call if there is a request for assistance. Reported to the Primary RN.
[2023-10-27 15:10] LABS: Rapid Plasma Reagin Non-Reactive (NonReactive)
[2023-10-27 17:15] VITALS: BP 115/63; PULSE 77
[2023-10-27 19:30] VITALS: BP 132/81; PULSE 88; RESP 16; TEMP 36.8; O2SAT 99
[2023-10-27 23:23] VITALS: BP 136/78; PULSE 90; RESP 16; TEMP 36.7; O2SAT 100
[2023-10-27] MEDS: CALCIUM CARBONATE (TUMS) 500 MG (200 MG ELEMENTAL) PO (23:59)
[2023-10-28] MEDS: ACETAMINOPHEN 325 MG TABLET 650 MG PO ×2 (01:28→10:15)
[2023-10-28] MEDS: IBUPROFEN 600 MG TABLET PO ×2 (03:28→10:16)
[2023-10-28 03:33] VITALS: BP 128/79; PULSE 79; RESP 14; O2SAT 98
[2023-10-28 07:50] VITALS: BP 130/71; PULSE 91; RESP 16; TEMP 37.2; O2SAT 99
--- NOTE | 2023-10-28 09:20 | PC.NURSE ---
[id number] Introductions were made to the father of the baby as mother is in the shower. Father of baby shared that Anuja was able to help them yesterday very well. RN CORDELL's name written on the communication board and father was encouraged to call for assistance if they had questions or concerns with anything related to , making breast milk or nipple pain.
[2023-10-28] MEDS: MULTIVIT/MIN/PREN/FOL AC/IRON TABLET 1 TAB PO (10:14)
[2023-10-28] MEDS: DOCUSATE SODIUM 100 MG CAPSULE PO (10:14)
[2023-10-28] MEDS: POLYSACCHARIDE IRON COMPLEX 150 MG CAPSULE PO (10:15)
--- NOTE | 2023-10-28 10:32 | PC.NURSE ---
[id number] Consulted with patient to assess needs related to after a request. Discussed with mother her successes, concerns and any questions she has. Parents shared that had 60mls of a formula bottle at 0620 and it has been almost 4 hours and infant will not wake to breastfeed. Parents shared that they were feeding with a bottle to prevent jaundice. Encouraged understanding of the benefits of skin to skin (demonstrating unwrapping and placing upright on her chest), stimulating with massage touch, changing positions to encourage wakefulness, how to watch for early feeding cues, responsive feeding, feeding on demand (aiming for 8-12 times in 24 hours, about every 2-3 hours), milk production, building/maintaining a milk supply, duration of feeding, signs of adequate intake/output and how to record on the feeding sheet. Mother works well with her with encouragement and education. Reviewed positioning and ear, shoulder, hip alignment, supporting the breast to facilitate a deep latch, asymmetrical latch (off-center), leading with the chin with a big, open, wide gape and body close to mother. is unable to latch. lifts and curls tongue as if to suck on a bottle or pacifier. When is latched deeply, then pulls back to latch onto the nipple. We reviewed working with the infant, supporting breast, protecting her nipples with an optimal deep latch, good positioning, and good hand washing. Encouraged understanding the benefits of skin to skin, responding to feeding cues, frequencies of feeding 8-12 times in 24 hours (approximately 2-3 hours), duration of feedings, milk production, intake/output feeding sheet and signs of adequate intake encouraging swallowing at the breast. Reviewed positioning and alignment, supporting breast, off-centered (asymmetrical latch) and leading with the chin with big, open, wide gape. attempts to latch to the left breast in football position, however; is unable so mother chooses to supplement with another bottle. Encouraged paced bottle feeding and protecting her milk supply with pumping. Mother has been using her own personal pump, however; not consistently but without pain and mother shares she isn't seeing any milk. Encouraged pumping to stimulate for adequate milk production every 3 hours (8 times in 24 hours) 1-2 times at night. Parents are encouraged to record the pumping schedule on the feeding sheet.?Nipple care reviewed with optimal latch, good positioning and using clean hands when touching her breast. Resources used to facilitate learning were used from the visual handouts and the guide to . Mother voiced understanding of the education shared and proceed to bottle feed her infant. Primary RN was present in the room for most of the consult.
--- NOTE | 2023-10-28 19:07 | PC.NURSE ---
1100 Patient viewed the discharge video Mother & Baby Care, The First Two Weeks . Patient was given the opportunity and encouraged to ask questions. Patient verbalized understanding of information shared and has been given the mother/baby guide for home reference.
[2023-10-29 11:31] VITALS: BP 140/77; PULSE 89; RESP 18; TEMP 37; O2SAT 100
--- NOTE | 2023-11-06 14:02 | PM.OBDSVD ---
DS: Admitting Diagnosis Discharge Date 10/28/23 Admitting Diagnosis Induction of labor Gestational hypertension DS: Discharge Diagnosis Discharge Diagnosis (1) Spontaneous vaginal delivery: Code(s): O80 - Encounter for full-term uncomplicated delivery Status: Acute OB - DS: Summary Hospital Course Hospital Course: She was admitted for medical induction of labor. She had Cervidil then Cytotec for cervical ripening she then had Pitocin for induction she continued to progress in labor she had spontaneous rupture membranes and she had a vaginal delivery of an 8 lb female. she did well. She had adequate pain control was tolerating regular diet. Blood pressures were stable. No signs or symptoms of severe hypertension. She was discharged home on day 2. PIH precautions discussed. OB Procedures : NST and PIH Mgmt OB Procedures Intrapartum: Spontaneous Vag Delivery OB Procedures: : None Peripartum Data Delivery Method: Natural Vaginal Laceration Description: Periurethral and Vaginal Episiotomy description: None complications: none Status at Discharge Functional status at discharge: independent ambulation Time Spent with Patient Time attestation: Total time spent providing and/or coordinating discharge services: Exam Const: General: cooperative Orientation/consciousness: oriented to person, oriented to place and oriented to time HENMT: Face/Nose/Sinus: Normal external nose present Eyes: General: appearance normal, both eyes and all related structures Resp: Effort & Inspection: normal respiratory effort GI: Inspection: normal to inspection Skin: General skin exam: normal color Neuro: General: oriented to person, oriented to place and oriented to time Extrem: General: normal to inspection and no calf tenderness Psych: Appearance: grossly normal Mental Status: mental status grossly normal DS: Data Data Completed and Pending Completed studies during hospitalization: Pending at discharge 10/26/23 10:23 Surgical [PTH] Routine Discharge Plan Discharge Attending physician on discharge: Christopher Michel Consulting providers: Deborah Chapa; Terence Barclay Jr. Discharging Clinician: Christopher Michel Patient Disposition: Home, Self-Care Activity: may shower and pelvic rest Diet: regular Discharge Instructions: Education: Mom and Baby Guide Given to: Mother Follow-Up: Call your delivering provider's office for an appointment to be seen in: 4 Weeks Mom and baby should come to the [facility] for the follow-up appointment. Appointment Date/Time:Sunday, October 29, 2023 at 11:00 am What to expect at your follow-up visit: Physical Assessment Call [phone] if you are unable to keep your appointment time. BREAST CARE: * Wear a snug supportive bra. * For engorgement discomfort: Breast Feeding: * Apply warm moist washcloths * Express milk as needed to relieve engorgement * Wear loose clothing Bottle Feeding: * May apply ice packs * For sore nipples: * Identify correct latch-on * Apply warm moist washcloths before and after nursing * Air dry nipples after nursing * May apply Lansinoh cream to nipples PERINEAL CARE: * Until bleeding stops, use your meghan bottle after urinating * Change your pad frequently throughout the day * You may take sitz baths several times a day (fill your bathtub with warm water and soak for 20 minutes.) Do NOT bathe in the water * No tub baths until seen by your physician - You may shower ACTIVITY: * Rest as much as possible. * Do not exercise or lift anything heavier than your baby (such as laundry or other children.) * Avoid stairs or driving as much as possible. * Do not put anything into the vagina. No douching, tampons, or sexual activity until seen by phys
== END 2023-10-28 14:52 | disposition home or self-care (01) | DRG 807 ==
LOC: ANHLDR 19:36 → ANHOB2 10-26 15:01
PROVIDERS: Admitting Provider Obstetrics & Gynecology; Visit Provider Obstetrics & Gynecology
DX: O13.4 Gestational [pregnancy-induced] hypertension without significant proteinuria, complicating childbirth (principal); Z37.0 Single live birth; Z3A.40 40 weeks gestation of pregnancy; O99.824 Streptococcus B carrier state complicating childbirth; O69.81X0 Labor and delivery complicated by cord around neck, without compression, not applicable or unspecified; O71.82 Other specified trauma to perineum and vulva
CPT/HCPCS: 36415; 59025; 76819; 80053; 81003; 82570; 84112; 84156; 84550; 85014; 85018; 85025; 86592; 86850; 86900; 86901; 88307; A9270; J0690; J2590; J2795; J3010; J7120

== ENCOUNTER 2024-08-01 17:25 | Emergency (ER) | payer OTHER, MEDICAID, SELFPAY ==
[2024-08-01] VITALS (22 sets, daily range): BP systolic 120–152; BP diastolic 56–97; PULSE 66–98; RESP 12–23; TEMP 36.4–36.6; O2SAT 95–100
--- NOTE | ~2024-08-01 | CT_ITS ---
CLINICAL INDICATION: Abdominal pain COMPARISON: . TECHNIQUE: Multiple contiguous axial images of the abdomen and pelvis were performed following the ad ministration of with 100 mL Omnipaque-350 intravenous contrast The dose-length product (DLP) was 1441.56 mGy-cm. Automated exposure control and iterative reconstruction technique were employed. FINDINGS/OBSERVATIONS: Visualized lower thorax: The bilateral lung bases are clear. The heart is of normal size, without pericardial effusion. Small hiatal hernia is present. Liver: The liver enhances homogeneously and is borderline enlarged measuring 19 cm in longitudinal dimension . Gallbladder and biliary system: The gallbladder is minimally distended, and contains a small amount of pericholecystic fluid. No calc ified stones are present. Pancreas: The pancreas enhances homogeneously without ductal dilatation. Spleen: The spleen enhances homogeneously and is not enlarged measuring 10 cm in longitudinal dimension. Kidneys: The bilateral kidneys enhance symmetrically without hydronephrosis or renal calculi. Adrenal glands: Unremarkable. Gastrointestinal tract: Fluid distention of the stomach. Appendix: The air-filled appendix is of normal caliber (axial series, images 112 -139). Vasculature: Unremarkable. No aneurysmal dilatation or significant stenosis. Lymph nodes: No pathologically enlarged or morphologically suspicious lymph nodes within the retroperitoneum or at the root of the mesentery. Pelvic structures: The bladder is decompressed, and otherwise unremarkable. The uterus is anteverted and anteflexed, and otherwise unremarkable. Body wall and musculoskeletal: No significant degenerative disease within the lower thoracic or lumbosacral spine. IMPRESSION: Trace pericholecystic fluid without calcified stones seen within the gallbladder. Borderline enlargement of the liver. Fluid distention of the stomach. Reviewed, dictated and finalized at location A. [facility] IMPRESSION: Trace pericholecystic fluid without calcified stones seen within the gallbladde r. Borderline enlargement of the liver. Fluid distention of the stomach.
[2024-08-01 20:12] LABS: Basophils Percent Auto 0.4 % (0.2-1.2); Eosinophils Absolute Auto 0.1 K/mm3 (0-0.3); Eosinophils Percent Auto 1.5 % (0-4.4); Hematocrit 40.8 % (37.0-47.0); Hemoglobin 12.8 g/dL (12.0-15.0); Immature Granulocyte Absolute 0.02 K/mm3 (0.00-0.031); Immature Granulocyte Percent A 0.2 % (0-0.5); Lymphocytes Absolute Auto 1.91 K/mm3 (0.9-3.2); Lymphocytes Percent Auto 19.8 % (18.3-44.2); Mean Corpuscular HGB Conc 31.4 g/dl (32-36); Mean Corpuscular Hemoglobin 27.5 pg (26-34); Mean Corpuscular Volume 87.7 fl (80-100); Mean Platelet Volume 10.3 fl (7.4-10.4); Monocytes Absolute Auto 0.5 K/mm3 (0.1-0.6); Monocytes Percent Auto 5.4 % (2.6-8.5); Neutrophils Percent Auto 72.7 % (45.5-73.1); Platelet Count Result 439 k/mm3 (150-375); Red Blood Count 4.65 M/mm3 (4.2-5.4); Red Cell Distribution Width 14.4 % (11.5-14.5); White Blood Count 9.7 K/mm3 (4.5-10.0)
[2024-08-01 20:25] LABS: Alanine Aminotransferase 216 U/L (6-35); Albumin Level 4.6 g/dL (3.5-5.1); Alkaline Phosphatase 144 U/L (38-126); Anion Gap 9 mmol/L (4-12); Aspartate Amino Transferase 356 U/L (14-36); Bilirubin,Total 2.5 mg/dL (0.2-1.3); Blood Urea Nitrogen 11 mg/dL (7-17); Calcium 9.8 mg/dL (8.4-10.2); Carbon Dioxide 31 mmol/L (22-30); Chloride 102 mmol/L (98-107); Estimated CRCL calculation 161 ml/min; Estimated Glomerular Filt Rate > 60; Glucose 91 mg/dL (65-110); Lipase 29 U/L (23-300); Potassium 3.7 mmol/L (3.4-5.0); Sodium 142 mmol/L (137-145)
[2024-08-01 20:38] LABS: Add Urine Microscopic? YES; Appearance Urine Cloudy (Clear); Bacteria Urine 1+ /hpf; Bilirubin Urine 2+ (Negative); Blood Urine 3+ (Negative); Color Urine Dark Yellow (Yellow); Glucose Urine UA Negative (Negative); Ketones Urine 1+ mg/dL (Negative); Leukocyte Esterase Ur 1+ LEU/UL (Negative); Need Manual Microscopic Reviewed; Nitrate Urine Positive (Negative); Non Pathogenic Casts 0-2; Protein Urine 1+ mg/dL (Negative); RBC Urine 0-2 /hpf (0-2); Specific Grav Ur 1.037 (1.001-1.035); Squamous Epithelial Cell Urine Few /hpf (Few); WBC Urine 0-5 /hpf (0-3); pH Urine 6.5 (5.0-9.0)
[2024-08-01 20:54] LABS: BEDSIDEPREGUCG Negative (Negative)
[2024-08-01] MEDS: SODIUM CHLORIDE 0.9% IV 1,000 ML 999 ML IV CONT (20:55)
--- NOTE | 2024-08-01 21:06 | PC.NURSE ---
called lab to add on bili stat
[2024-08-01 21:16] LABS: Bilirubin Direct 0.7 mg/dL (0-0.3)
--- NOTE | 2024-08-01 21:37 | ED_ITS ---
HPI - Abdominal Pain General Chief Complaint: Abdominal Pain Stated Complaint: right rib cage pain Time Seen by Provider: 08/01/24 20:03 History of Present Illness HPI narrative: Patient is 23-year-old female who presents the emergency department this evening complaining of right upper quadrant abdominal pain which started sometime this evening. Patient states that she has been having these gallbladder attacks for the past 9 months on and off since she gave . Has not had this fully checked stating that she has not had any ultrasound of her gallbladder or any CT but the pain got so severe that she decided to come to the emergency department for evaluation. Rates the pain an 8/10 on the pain scale. Admits to nausea and vomiting and light stools. Denies any fevers or chills at home. No additional symptoms or concerns at this time. Related Data Home Medications ?Medication ?Instructions ?Recorded ?Confirmed ?Last Taken ?Type albuterol sulfate 200 mcg capsule 200 mcg inhalation DAILY PRN 04/23/23 01/08/24 Unknown History with inhalation device Wheezing vitamins-iron 29 mg-folic 1 tablet PO DAILY 05/27/23 01/08/24 1 Day Ago History acid 1 mg-docusate 50 mg tablet ~09/29/23 Allergies Allergy/AdvReac Type Severity Reaction Status Date / Time Penicillins AdvReac Intermediate Hives Verified 01/08/24 14:57 Review of Systems 2 Review of Systems: All systems are reviewed and are negative unless stated otherwise in the HPI. [facility] Past Medical History Medical History Amenorrhea Benign tumor of breast BMI 40.0-44.9, adult COVID-19 Pneumonia Family History Family History Father Hypertension Mother No problems noted. Sibling No problems noted. Social History Social History Smoking status: Former smoker Tobacco type: e-cigarettes/vaping Second hand tobacco smoke exposure: No Alcohol intake: former Substance use: never Substance use type: marijuana Do You Feel Safe in your Home?: No Lack of Transportation: No Lack of Food: Never True Current Housing: I Have Housing Concerned About Future Housing: No Difficulty Paying Gas/Electric Bills: No Difficulty Paying for Meds: No Currently Unemployed: No Education: High School Diploma/GED Difficulty w/ Childcare or Family Care: No Living arrangements: with family Occupation/Education: student Additional occupation/education comments: 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 Gender identity (if verbalized by the patient): Female Spiritual care concerns: No Exam 2 Narrative: General: Alert, awake, afebrile, in no acute distress. HEENT: PERRL, no rhinorrhea, no post nasal drip, oropharynx clear. Neck: Trachea midline, no JVD, no lymphadenopathy. Cardiovascular: Regular rate and rhythm, no murmurs, rubs or gallops, no peripheral edema. Respiratory: Clear to auscultation bilaterally, no tachypnea, no wheezing, no rhonchi, no rubs, no respiratory distress. Abdomen: Soft, mild tenderness palpation over the right upper quadrant, nondistended, no rebound, no guarding, no peritoneal signs. Musculoskeletal: No joint swelling or deformity, normal muscle tone. Skin: No rashes or petechia, no signs of infection. Psychiatric: Alert and oriented, normal behavior and judgment for situation. Neurological: Alert and oriented to person, place, and time. Follows all commands. No focal deficits, speech is clear and fluent. Course Vital Signs Vital signs: Vital Signs Temperature 97.6 F 08/01/24 17:34 Pulse Rate 82 08/01/24 17:34 Respiratory Rate 17 08/01/24 17:34 Blood Pressure 145/80 H 08/01/24 17:34 Pulse Oximetry 100 08/01/24 17:34 Oxygen Delivery Room Air 08/01/24 17:34 Temperature 97.6 F 08/01/24 17:34 Pulse Rate 72 08/01/24 22:46 Respiratory Rate 21 H 08/01/24 22:46 Blood Pressure 120/97 H 08/01/24 22:46 Pulse Oximetry 100 08/01/24 22:45 Oxygen Delivery Room Air 08/01/24 17:34 MDM - Abdominal Pain MDM Narrative Medical decision making narrative: The patient was evaluated by myself in the emergency department. History is obtained from patient who is an independent historian and physical exam was performed. External medical records were reviewed at this time. IV was established and pertinent tests were ordered. Patient was administered 1 L IV fluid bolus with normal saline, 20 mg of IV Pepcid, 4 mg IV Zofran and 4 mg IV morphine. Laboratory results obtained revealing transaminitis with an AST of 356 and ALT of 216, elevated alkaline phosphatase 144, elevated total bili of 2.5. Urinalysis revealed urinary tract infection. Imaging studies obtained included CT abdomen and pelvis with IV contrast which was independently interpreted by me revealing a distended gallbladder with trace pericholecystic fluid, which is pending final radiology interpretation. Differential diagnosis considerations include biliary colic, choledocholithiasis, acute cholecystitis, gastritis. Comorbidities impacting this visit include none. I have evaluated and discussed social determinants of health with the patient that could potentially impact subsequent diagnosis and treatment plans. On repeat assessment of the patient, reevaluation revealed that the patient is doing well and is in no acute distress. Patient symptoms have improved since she arrived to our emergency department, currently resting comfortably denying any pain tolerating p.o. intake. Repeat vital signs were all reviewed and noted to be stable. Differential diagnosis and treatment plan were discussed with the patient at bedside. Patient agrees with discussion and after shared medical decision making agrees with discharge. All questions were answered to the patient's satisfaction. Patient will follow up with general surgery in 3-5 days. She was instructed to refrain from eating any fatty until she can follow-up with general surgery and patient is agreeable with this plan. Scripts for Zofran and Bactrim was sent to patient's pharmacy to use as prescribed. Patient was provided with strict return precautions and instructed to return to the emergency department if any new or worsening symptoms develop. The patient was discharged in stable condition. Lab Data 08/01/24 20:05 08/01/24 20:05 Labs: Lab Results 08/01/24 08/01/24 08/01/24 Range/Units 20:05 20:19 20:52 WBC 9.7 (4.5-10.0) K/mm3 RBC 4.65 (4.2-5.4) M/mm3 Hgb 12.8 D (12.0-15.0) g/dL Hct 40.8 (37.0-47.0) % MCV 87.7 (80-100) fl MCH 27.5 (26-34) pg MCHC 31.4 L (32-36) g/dl RDW 14.4 (11.5-14.5) % Plt Count 439 H D (150-375) k/mm3 MPV 10.3 (7.4-10.4) fl Immature Gran % (Auto) 0.2 (0-0.5) % Neut % (Auto) 72.7 (45.5-73.1) % Lymph % (Auto) 19.8 (18.3-44.2) % [place] % (Auto) 5.4 (2.6-8.5) % Eos % (Auto) 1.5 (0-4.4) % Baso % (Auto) 0.4 (0.2-1.2) % Lymph # (Auto) 1.91 (0.9-3.2) K/mm3 [place] # (Auto) 0.5 (0.1-0.6) K/mm3 Eos # (Auto) 0.1 (0-0.3) K/mm3 Baso # (Auto) 0.0 (0.0-0.1) K/mm3 Abs Immat Gran (auto) 0.02 (0.00-0.031) K/mm3 Absolute Neuts (auto) 7.0 H (1.3-6.7) K/mm3 Absolute Nucleated RBC 0.000 (0.0-0.012) K/mm3 Nucleated RBC % 0.0 (0.0-0.2) % Sodium 142 (137-145) mmol/L Potassium 3.7 (3.4-5.0) mmol/L Chloride 102 (98-107) mmol/L Carbon Dioxide 31 H (22-30) mmol/L Anion Gap 9 (4-12) mmol/L BUN 11 (7-17) mg/dL Creatinine 0.58 L (0.7-1.0) mg/dL Estim Creat Clear Calc 161 ml/min Estimated GFR > 60 (59 - ) Glucose 91 (65-110) mg/dL Calcium 9.8 (8.4-10.2) mg/dL Total Bilirubin 2.5 H (0.2-1.3) mg/dL Direct Bilirubin 0.7 H (0-0.3) mg/dL AST 356 H (14-36) U/L ALT 216 H (6-35) U/L Alkaline Phosphatase 144 H (38-126) U/L Total Protein 8.0 (6.3-8.2) g/dL Albumin 4.6 (3.5-5.1) g/dL Lipase 29 (23-300) U/L Urine Color Dark yellow (Yellow) Urine Appearance Cloudy H (Clear) Urine pH 6.5 (5.0-9.0) Ur Specific [place] 1.037 H (1.001-1.035) Urine Protein 1+ H (Negative) mg/dL Urine Glucose (UA) Negative (Negative) mg/dL Urine Ketones 1+ H (Negative) mg/dL Ur Blood (Man) 3+ H (Negative) Urine Nitrate Positive H (Negative) Urine Bilirubin 2+ H (Negative) Urine Urobilinogen 1.0 (<2.0) mg/dL Add Ur Microanalysis Reviewed Leukocyte Esterase Rfl 1+ H (Negative) MAGDALENO/UL Urine RBC 0-2 (0-2) /hpf Urine WBC 0-5 (0-3) /hpf Ur Squamous Epith Cells Few (Few) /hpf Urine Bacteria 1+ H /hpf Urine Casts 0-2 POC Urine HCG, Qual Negative (Negative) Imaging Data Radiologist's impression: ITS Impressions Abdomen/Pelvis CT 08/01/24 21:20 IMPRESSION: Trace pericholecystic fluid without calcified stones seen within the gallbladder. Borderline enlargement of the liver. Fluid distention of the stomach. Discharge Plan Discharge Clinical Impression: Abdominal pain, Biliary colic, Hyperbilirubinemia, Transaminitis, UTI (urinary tract infection) Patient Disposition: Home, Self-Care Condition: Improved Instructions: Antibiotic Form, Urinary Tract Infection in Women (DC), Abdominal Pain (ED) Additional Instructions: Please follow-up with the general surgeon you were provided with today, call tomorrow to set up a follow-up appointment. Return to the emergency department if any new or worsening symptoms develop. Take the prescribed Zofran as needed for nausea/vomiting and the prescribed antibiotic for urinary tract infection. Patient Language: Welsh Prescriptions: New ondansetron 4 mg tablet,disintegrating 4 mg PO Q8H PRN (Reason: nausea and vomiting) Qty: 10 0RF sulfamethoxazole-trimethoprim [Bactrim] 400-80 mg tablet 1 tablet PO BID 7 Days Qty: 14 0RF No Action albuterol sulfate 200 mcg capsule, w/inhalation device 200 mcg inhalation DAILY PRN (Reason: Wheezing) [id number] 29-1-50 mg tablet 1 tablet PO DAILY Follow-up/Referrals: PHYSICIAN,[employer] [Primary Care Provider] - Rashaad Denny DO [Physician] - 3 Days Time of Disposition: 22:42
[2024-08-01] MEDS: MORPHINE SULFATE (*CRX) 4 MG/ML INJ IV PUSH (21:51)
[2024-08-01] MEDS: ONDANSETRON INJ 4 MG/2 ML VIAL IV PUSH (21:51)
[2024-08-01] MEDS: FAMOTIDINE 20 MG/2 ML VIAL IV PUSH (21:51)
== END 2024-08-01 23:02 | disposition home or self-care (01) ==
PROVIDERS: Physician Assistant; Emergency Provider Emergency Medicine
DX: N39.0 Urinary tract infection, site not specified (principal); K80.50 Calculus of bile duct without cholangitis or cholecystitis without obstruction; E80.6 Other disorders of bilirubin metabolism; R74.01 Elevation of levels of liver transaminase levels; Z86.16 Personal history of COVID-19; Z87.01 Personal history of pneumonia (recurrent); Z87.891 Personal history of nicotine dependence
CPT/HCPCS: 36415; 74177; 80053; 81001; 81025; 82248; 83690; 85025; 87086; 96361; 96374; 96375; 99284; J2270; J2405; J7030; Q9967